=== PATIENT | male | born 1970 | race Caucasian/White ===

== ENCOUNTER 2017-06-05 16:14 | Emergency (ER) | payer OTHER ==
[~2017-06-05] VITALS: Ht 190.5 cm; Wt 106.8 kg
[2017-06-05] MEDS ORDERED: LIDODERM 5% P1 PATCH TD (19:34)
[2017-06-05] MEDS ORDERED: PREDNISONE20 MG PO (19:34)
[2017-06-05] MEDS ORDERED: FLEXERIL10 MG PO (19:34)
[2017-06-05 19:44] VITALS: BP 105/59
== END 2017-06-05 19:45 | disposition home or self-care (01) ==
LOC: EME 16:14
DX: M54.32 Sciatica, left side (principal); M79.662 Pain in left lower leg; Z86.718 Personal history of other venous thrombosis and embolism; Z79.01 Long term (current) use of anticoagulants; G47.419 Narcolepsy without cataplexy
CPT/HCPCS: 93971; 99281; 99284; J7512